=== PATIENT | female | born 2000 | race Caucasian/White ===

== ENCOUNTER → 2022-05-26 | Outpatient (CLI) | payer OTHER | LOC: MC.RAD 07:42 | DX: N63.21 Unspecified lump in the left breast, upper outer quadrant (principal) ==

== ENCOUNTER 2022-06-30 23:38 | Emergency (ER) | payer OTHER ==
[~2022-06-30] VITALS: Ht 165.1 cm; Wt 59.1 kg
[2022-06-30 23:49] VITALS: BP 137/88; TEMP 98.6
[2022-07-01 00:12] VITALS: PULSE 86
== END 2022-07-01 00:12 | disposition home or self-care (01) ==
LOC: COL.ER 23:38
DX: S09.90XA Unspecified injury of head, initial encounter (principal); S01.01XA Laceration without foreign body of scalp, initial encounter; W18.30XA Fall on same level, unspecified, initial encounter; W22.8XXA Striking against or struck by other objects, initial encounter